=== PATIENT | female | born 2000 | race African-American/Black ===

== ENCOUNTER → 2018-06-04 | Outpatient (CLI) | payer OTHER ==
--- NOTE | 2018-06-04 17:38 | PCVCIMAG ---
APPROVED REPORT Study performed: 06/04/2018 16:10:37 EXAM: Comprehensive 2D, Doppler, and color-flow Echocardiogram Patient Location: Echo lab Status: routine BSA: 1.71 HR: 59 bpmBP: 140/94 mmHg Rhythm: NSR Other Information Study Quality: Good Indications Abnormal EKG 2D Dimensions LVEF(%): 50.06 (>50%) IVSd: 7.33 (7-11mm)LVOT Diam: 17.10 (18-24mm) LVDd: 43.43 mm PWd: 8.65 (7-11mm)Ascending Ao: 24.84 (22-36mm) LVDs: 32.48 (25-40mm) Left Atrium: 26.67 (27-40mm) Aortic Root: 24.12 mm LV Single Plane 4CH: 52.58 % LV Single Plane 2CH: 60.53 %Kaufman's LVEF: 56.56 % Biplane EF: 55.7 % Volumes Left Atrial Volume (Systole) Single Plane 4CH: 38.12 mLSingle Plane 2CH: 20.67 mL LA ESV Index: 19.00 mL/m2 Aortic Valve AoV Peak Jasper.: 1.60 m/s AO Peak Gr.: 10.28 mmHgLVOT Max P.26 mmHg LVOT Max V: 1.15 m/s JESSA Vmax: 1.64 cm2 Mitral Valve E/A Ratio: 1.5 MV Decel. Time: 246.56 ms MV E Max Jasper.: 0.86 m/s MV A Jasper.: 0.59 m/s TDI E/Lateral E': 5.73E/Medial E': 6.62 Medial E' Jasper.: 0.13 m/s Lateral E' Jasper.: 0.15 m/s Pulmonary Valve PV Peak Gr.: 2.70 mmHg Pulmonary Vein P Vein S: 0.67 m/sP Vein A: 0.25 m/s P Vein D: 0.53 m/sP Vein A Dur.: 100.3 msec P Vein S/D Ratio: 1.26 Left Ventricle The left ventricle is normal size. There is normal LV segmental wall motion. There is normal left ventricular wall thickness. Left ventricular systolic function is normal. The left ventricular ejection fraction is within the normal range. LVEF is 60-65%. The left ventricular diastolic function is normal. Right Ventricle The right ventricle is normal size. The right ventricular systolic function is normal. Atria The left atrium size is normal. The right atrium size is normal. Aortic Valve The aortic valve is normal in structure. No aortic regurgitation is present. There is no aortic valvular stenosis. Mitral Valve The mitral valve is normal in structure. There is no mitral valve regurgitation noted. No evidence of mitral valve stenosis. Tricuspid Valve The tricuspid valve is normal in structure. There is no tricuspid valve regurgitation noted. Pulmonic Valve The pulmonary valve is normal in structure. There is no pulmonic valvular regurgitation. Great Vessels The aortic root is normal in size. IVC is normal in size and collapses with >50% inspiration Pericardium There is no pericardial effusion. <Conclusion> 1. Normal echocardiogram with Doppler. EF 65% 2. No pericardial effusion
--- NOTE | 2018-06-05 10:17 | PCVCIMAG ---
APPROVED REPORT Patient Location: Echo lab, Stress Test Room #: Stress Nurse: Natalia Morris RN Indication: Abnormal EKG The patient exercised according to the MUKUL for 13:52 mins. achieving a work level of Max. Mets 17.2 The resting heart rate of 63 bmpm tremaine to a maximal heart rate of 196 bpm. This value represents 98% of the maximal age predicted heart rate. The resting blood pressure of 140/94 mmhg, tremaine to a maximum blood pressure of 180/94 mmhg. The exercise test was stoppded due to fatigue, target heart rate achieved. Resting EKG: Sinus rhythm with nonspecific ST segment abnormality Stress EK mm of upsloping ST depression consistent with a false positive electrocardiographic response Conclusion 1. Maximal treadmill exercise study of low probability for provokable ischemia. 2. No subjective signs of ischemia such as chest pain or anginal-like symptoms. 3. Low Chapin treadmill exercise score 4. The study was associated with excellent exercise capacity (17.2 METS)
== END | disposition home or self-care (01) ==
LOC: PCVCIMAG 16:52
PROVIDERS: ATTEND Internal Medicine
DX: R94.31 Abnormal electrocardiogram [ECG] [EKG] (principal)
CPT/HCPCS: 93017; 93306